=== PATIENT | male | born 1960 | race African-American/Black ===

== ENCOUNTER 2016-12-26 07:53 | Emergency (ER) | payer OTHER ==
[~2016-12-26] VITALS: Ht 172.7 cm; Wt 77.1 kg
--- NOTE | ~2016-12-26 | EKG ---
PATIENT: VITALIY JACOBSEN UNIT #: [id number] Ventricular Rate: 58 BPM Atrial Rate: 58 BPM P-R Interval: 192 ms QRS Duration: 92 ms Q-T Interval: 470 ms QTC Calculation(Bezet): 461 ms P [place]: 9 degrees Calculated R [place]: -26 degrees Calculated T [place]: -10 degrees Diagnosis Line: Sinus bradycardia Diagnosis Line: Nonspecific ST and T wave abnormality Diagnosis Line: Prolonged QT Diagnosis Line: Abnormal ECG Diagnosis Line: When compared with ECG of 04-JAN-2013 02:36, Diagnosis Line: ST now depressed in Inferior leads Diagnosis Line: Nonspecific T wave abnormality now evident in Diagnosis Line: Inferior leads Diagnosis Line: T wave inversion now evident in Anterior leads Diagnosis Line: Confirmed by YOLI FERNANDEZ MD ([id number]) on Diagnosis Line: 12/28/2016 11:13:39 PM INTERPRETING MD: JIM OLMOS
--- NOTE | ~2016-12-26 | CT14 ---
[facility] A Service of [facility] & [facility] RADIOLOGY TEXT RESULTS PATIENT: VITALIY JACOBSEN LOCATION: [facility] : 56 UNIT #: [id number] AGE: [address]: Russel Cameron DO SEX: M ORDER DR: [id number] [facility] [address] [place], [place] [address] [id number] E MR#: [id number] Acc #: [id number] NAME: VITALIY JACOBSEN : 1960 SEX: M STUDY DATE/TIME: 12/26/2016 8:47 UNIT: [facility] ROOM: STUDY DESCRIPTION: CT Angio Abdomen and Pelvis Attending Physician: Russel Cameron D.O. Ordering Physician: Ed Migel Aguilar M.D. Primary Care Physician: No Primary Care Physician MEDICAL IMAGING REPORT This report is preliminary unless electronic signature is present EXAM CT angiogram abdomen and pelvis, 12/26/2016. FINDINGS Please see CT angiogram chest for results. Dictated by... Jose Juan Jc M.D. THIS IS AN ELECTRONICALLY VERIFIED REPORT Jose Juan Jc M.D. at 12/26/2016 3:12 PM Belinda TD: 12/26/2016 12:10 JOB #: [id number] MEDICAL IMAGING REPORT Page 1 of 1 COPY
--- NOTE | ~2016-12-26 | CR72 ---
[facility] A Service of [facility] & [facility] RADIOLOGY TEXT RESULTS PATIENT: VITALIY JACOBSEN LOCATION: [facility] : 56 UNIT #: [id number] AGE: [address]: Russel Cameron DO SEX: M ORDER DR: [id number] [facility] [address] [place], [place] [address] [id number] E MR#: [id number] Acc #: [id number] NAME: VITALIY JACOBSEN : 1960 SEX: M STUDY DATE/TIME: 12/26/2016 8:53 UNIT: [facility] ROOM: STUDY DESCRIPTION: CR Chest Single View Portable Attending Physician: Russel Cameron D.O. Ordering Physician: Michael Fong M.D. Primary Care Physician: Primary Care Physician No MEDICAL IMAGING REPORT This report is preliminary unless electronic signature is present EXAM Portable chest INDICATION Chest pain starting today. FINDINGS A portable view of the chest was obtained and compared to 03/15/2011. The heart size and vascularity are normal. The lungs are clear. The ascending and descending aorta seems somewhat tortuous but unchanged from the prior study. There is minimal scarring in the right upper lobe. IMPRESSION 1. Slightly tortuous aorta unchanged from 2010. Minimal scarring right upper lobe. 2. No active disease. Dictated by... Shar Elaine M.D. THIS IS AN ELECTRONICALLY VERIFIED REPORT Shar Elaine M.D. at 12/26/2016 1:26 PM AGUILAR/hoa TD: 12/26/2016 10:51 JOB #: [id number] MEDICAL IMAGING REPORT Page 1 of 1 COPY
--- NOTE | ~2016-12-26 | CT15 ---
[facility] A Service of [facility] & [facility] RADIOLOGY TEXT RESULTS PATIENT: VITALIY JACOBSEN LOCATION: [facility] : 56 UNIT #: [id number] AGE: [address]: Russel Cameron DO SEX: M ORDER DR: [id number] [facility] [address] [place], [place] [address] [id number] E MR#: [id number] Acc #: [id number] NAME: VITALIY JACOBSEN : 1960 SEX: M STUDY DATE/TIME: 12/26/2016 8:47 UNIT: [facility] ROOM: STUDY DESCRIPTION: CT Angio Chest Attending Physician: Russel Cameron D.O. Ordering Physician: Ed Migel Aguilar M.D. Primary Care Physician: No Primary Care Physician MEDICAL IMAGING REPORT This report is preliminary unless electronic signature is present EXAM CTA chest, abdomen, and pelvis, 12/26/2016. INDICATIONS Acute chest and back pain for [address] angiogram of the chest, abdomen, and pelvis utilizing 100 mL Isovue-370 IV contrast. Coronal and sagittal 3-D MIP reconstructions were obtained. This CT exam was performed with one or more of the following radiation dose reduction techniques: automatic exposure control, adjustment of mA and/or kV according to patient size, and iterative reconstruction. COMPARISON Chest radiograph dated 12/26/2016. FINDINGS AORTA: There is extensive cardiac and respiratory motion artifact on the exam. The aortic root appears to be normal in size, measuring 3.5 cm. The mid ascending thoracic aorta is at the upper limits of normal, measuring 4 cm. There is an aortic dissection originating at the level of the left subclavian artery. There is an associated intramural hematoma extending from the left subclavian artery and into the descending thoracic aorta. This extends into the abdominal aorta down to the level of the right renal artery. The arch vessels are all widely patent. The descending thoracic aorta measures up to 4.8 cm maximally. The abdominal aorta measures 3.2 cm at the diaphragmatic hiatus. It measures 3 cm at the level of the left renal artery. The celiac, SMA, and renal arteries are widely patent. The GUTIERREZ is patent. Both common iliac arteries and external iliac arteries are patent. The [facility] A Service of [facility] & [facility] RADIOLOGY TEXT RESULTS PATIENT: VITALIY JACOBSEN [id number] 56 UNIT #: [id number] AGE: [address]: Russel Cameron DO SEX: M ORDER DR: common femoral arteries are patent. CHEST: No mediastinal hematoma. No pericardial or pleural effusion. There is background emphysema. There is moderate emphysema. ABDOMEN: The liver, pancreas, spleen, adrenal glands, and kidneys are within normal limits. There are multiple cysts in the kidneys. The bowel is not dilated. Pelvis: The bladder is distended, measuring up to 10 cm in length. No enlarged pelvic or inguinal lymph nodes. No acute osseous abnormalities. IMPRESSION 1. Acute aortic dissection. The dissection originates at the left subclavian artery. 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 Please note, there is a fairly significant amount of respiratory and cardiac motion, and followup imaging with cardiac gating may be useful for treatment planing. 2. No mediastinal hematoma, pericardial effusion, or pleural effusion. 3. The dissection extends down into the descending thoracic aorta and abdominal aorta to the level of the right renal artery. 4. The great vessels and abdominal aortic branches are all patent. 5. This study was discussed with Dr. Hernández at approximately 09:35 on 12/26/2016 Dictated by... Jose Juan Jc M.D. THIS IS AN ELECTRONICALLY VERIFIED REPORT Jose Juan Jc M.D. at 12/26/2016 3:11 PM DEION/louisa TD: 12/26/2016 12:02 JOB #: [id number] MEDICAL IMAGING REPORT Page 1 of 1 COPY
[~2016-12-26 07:53] MED LIST: BACTRIM DS TABL1 TA2 PO; FEOSOL PO; LORTAB 10/500 T1 TAB PO; NO MEDICATIONS; NORCO 7.5-3251 EACH PO; NORMAL SALINE TOP; NORVASC PO; NORVASC10 MG PO
[2016-12-26 09:34] LABS: BASOPHIL% 0.2 % (0-2.5); EOSINOPHIL% 0.2 % (0.0-7.0); HEMATOCRIT 43.7 % (38.0-50.0); HEMOGLOBIN 14.5 gm/dL (13.0-16.0); LYMPHOCYTE# 1.3 X10e3 (1.0-3.5); LYMPHOCYTE% 13.7 % (17.0-45.0); MEAN CELL VOLUME 86.2 FL (83-96); MEAN CORPUSCULAR HEMOGLOBIN 28.6 PG (28-34); MEAN CORPUSCULAR HGB CONC 33.1 g/dL (30-36); MONOCYTE# 0.7 X10e3 (0-1.0); MONOCYTE% 7.7 % (3.0-12.0); NEUTROPHIL# 7.5 X10e3 (1.5-7.1); NEUTROPHIL% 78.2 % (40-75); PLATELET COUNT 255 X10e3 (140-420); RED BLOOD COUNT 5.07 X10e (3.90-5.60); RED CELL DISTRIBUTION WIDTH 14.2 % (11.0-15.5); WHITE BLOOD COUNT 9.6 X10e3 (4.0-10.5)
[2016-12-26 09:35] LABS: DIFF IND NO
[2016-12-26 10:13] LABS: ALBUMIN SERUM 4.3 g/dL (3.5-5.0); BILIRUBIN, DIRECT 0.3 mg/dL (0.0-0.2); BILIRUBIN,INDIRECT 1.9 mg/dL (0.0-0.9); BILIRUBIN,TOTAL 2.2 mg/dL (0.2-2.0); BUN/CREATININE RATIO 7.5; CREATININE SERUM 1.2 mg/dL (0.6-1.4); GLOM FILT RATE Estimated 76.8 mL/min (>60); POTASSIUM 3.6 mmol/L (3.5-5.1); PROTEIN TOTAL SERUM 8.1 g/dL (6.0-8.3)
[2016-12-26 10:14] LABS: INR 1.1; PARTIAL THROMBOPLASTIN TIME 27.4 SECONDS (23.5-31.3); PROTHROMBIN TIME (PATIENT) 11.4 SECONDS (10.0-11.7)
[2016-12-26 10:41] LABS: AMPHETAMINE NEG (NEG); BARBITURATES NEG (NEG); BENZODIAZEPINES NEG (NEG); COCAINE NEG (NEG); MARIJUANA NEG (NEG); OPIATES NEG (NEG); TRICYCLIC ANTIDEPRESSANTS NEG (NEG); U METHADONE NEG (NEG)
[2016-12-26 11:30] LABS: POC - CREATININE 0.99 mg/dL (0.64-1.27); POC - GFR >60.0 mL/min (>60)
== END 2016-12-26 09:47 ==
LOC: CED 07:53
PROVIDERS: Emergency Medicine; Nurse Practitioner
DX: I71.01 Dissection of thoracic aorta (principal); I10 Essential (primary) hypertension; Z79.899 Other long term (current) drug therapy; Z87.891 Personal history of nicotine dependence
CPT/HCPCS: 36415; 71010; 71275; 74174; 80048; 80076; 80307; 82565; 83880; 85025; 85610; 85730; 93005; 96374; 96375; 99291; J1170; J2405; Q9967